=== PATIENT | male | born 1975 | race Caucasian/White ===

== ENCOUNTER 2023-12-30 18:55 | Emergency (ER) | payer BC, SELFPAY ==
[2023-12-30 18:57] VITALS: BP 139/75; PULSE 66; RESP 18; TEMP 36.8; O2SAT 100; BMI 28.0
--- NOTE | 2023-12-30 19:07 | ECG_ITS ---
APPROVED REPORT Exam: Resting ECG HR:61 bpm ECG Measurements Heart Rate 61 AXES DC 205 P 66 QRSd 103 QRS 55 QT 423 T 46 QTc 426 Conclusion SINUS RHYTHM NORMAL ECG UNCONFIRMED REPORT Electronically signed by : Gurpreet Ivan MD 01/02/2024 20:16:34
[2023-12-30 19:14] VITALS: BMI 28.0
--- NOTE | 2023-12-30 19:19 | ED_ITS ---
Discharge Plan Disposition Chief Complaint: Psychiatric Symptoms Prescriptions Prescriptions: No Action ropinirole 1 mg tablet 1 mg PO DAILY pantoprazole 40 mg tablet,delayed release (DR/EC) 40 mg PO DAILY buspirone 10 mg tablet 10 mg PO DAILY folic acid 1 mg tablet 1 mg PO DAILY hydroxyzine HCl 25 mg tablet 25 mg PO HS Patient Comments: TAKE 1 TABLET BY MOUTH EVERYDAY AT BEDTIME paroxetine HCl 40 mg tablet 1 mg PO DAILY quetiapine 50 mg tablet 1 mg PO DAILY thiamine mononitrate (vit B1) 100 mg tablet 100 mg PO DAILY naloxone 4 mg/actuation spray,non-aerosol 4 mg INTRANASAL DAILY Referrals Follow up/Referrals: Provider,Referral, MD [Primary Care Provider] - See instructions Clinical Impressions Clinical Impression: Depression with suicidal ideation Discharge ED Provider: Paolo Gillespie General Adult HPI General Chief complaint: Psychiatric Symptoms Stated complaint: suicidal thoughts Time Seen by Provider: 12/30/23 18:59 Mode of Arrival: Ambulatory Source of Information: Patient Limitations: No Limitations Description of Symptoms (Recalled from ER Triage Doc. by RN): Patient came in for SI. Patient states that he has been using 'meth, alcohol, wees vaps, pot, and gabapentin.' Patient states that he has been feeling worthless and will either hang himself, blow his brains out, or OD. History of Present Illness HPI narrative: 48-year-old male history of polysubstance abuse including methamphetamines, marijuana, alcohol, heroin, among others orally, nasally, intravenously presenting with suicidal ideation. Patient states that he has been feeling w orthless and as if he needs to . He has had thoughts of hurting himself via overdose. He states that [facility] in order to get back on his feet, off drugs and be clean entirely. States when he uses drugs, he has hallucinations, he is not currently having them. Last used intranasal drugs more than 24 hours prior to this visit. Denies any current symptoms other than right knee pain. Related Data Home Medications Medication Instructions Recorded Confirmed buspirone 10 mg tablet 10 mg PO DAILY 12/30/23 12/30/23 folic acid 1 mg tablet 1 mg PO DAILY 12/30/23 12/30/23 hydroxyzine HCl 25 mg tablet 25 mg PO HS 12/30/23 12/30/23 naloxone 4 mg/actuation nasal spray 4 mg intranasal DAILY 12/30/23 12/30/23 pantoprazole 40 mg tablet,delayed 40 mg PO DAILY 12/30/23 12/30/23 release paroxetine HCl 40 mg tablet 1 mg PO DAILY 12/30/23 12/30/23 quetiapine 50 mg tablet 1 mg PO DAILY 12/30/23 12/30/23 ropinirole 1 mg tablet 1 mg PO DAILY 12/30/23 12/30/23 thiamine mononitrate (vit B1) 100 100 mg PO DAILY 12/30/23 12/30/23 mg tablet Allergies Allergy/AdvReac Type Severity Reaction Status Date / Time No Known Allergies Allergy Verified 12/30/23 19:14 [facility] Disclaimer: The information contained in this section may have been updated after the ivette aguillon was seen, as this information can be updated by other users. Social History Smoking Status: Current every day smoker alcohol intake: current current occupational status: unemployed Travel in the last 8 weeks: None ROS Obtained: Yes All systems reviewed & no additional complaints except as documented Physical Exam General General appearance: alert and in no apparent distress Head Head exam: atraumatic and normocephalic Eye Eye exam: Present normal appearance, PERRL and EOMI ENT ENT exam: Present mucous membranes moist Neck Neck exam: Present normal inspection, full ROM and trachea midline Respiratory Respiratory exam: Absent respiratory distress, wheezes, stridor, accessory muscle use or prolonged expiratory phase Cardiovascular Cardiovascular exam: Present normal rhythm Abdominal Exam Abdominal exam: Present soft; Absent distention, tenderness, guarding, rebound or rigidity Extremities Exam Extremities exam: Absent edema Neurological Exam Neurological exam: Present alert, oriented X3, CN II-XII intact and normal gait; Absent motor sensory deficit Skin Skin exam: Present warm and dry; Absent diaphoresis or erythema Medical Decision Making Medical Records Medical records reviewed: Yes I reviewed the patient's medical records. Jorje Inquiry Pt receiving controlled substance: No Jorje was queried for this patient: No Vital Signs: 12/30/23 18:57 Temperature 98.3 F Temperature Source Oral Pulse Rate [Radial] 66 Respiratory Rate 18 Blood Pressure [Right Arm] 139/75 Blood Pressure Mean [Right Arm] 96 Blood Pressure Source [Right Arm] Automatic Cuff Blood Pressure Position [Right Arm] Sitting 02 Sat by Pulse Oximetry 100 Oxygen Delivery Method Room Air Lab Data Lab Results 12/30/23 19:15: WBC 4.9, RBC 4.48 L, Hgb 13.3 L, Hct 39.9 L, MCV 89.0, MCH 29.6, MCHC 33.3, RDW 14.8, Plt Count 200, MPV 7.6, Neut % (Auto) 54.5, Lymph % (Auto) 31.2, [place] % (Auto) 9.3, Eos % (Auto) 4.4, Baso % (Auto) 0.6, Neut # (Auto) 2.7, Lymph # (Auto) 1.5, [place] # (Auto) 0.5, Eos # (Auto) 0.2, Baso # (Auto) 0.0, Sodium 141, Potassium 4.3, Chloride 110 H, Carbon Dioxide 32 H, Anion Gap 3.3 L, BUN 14, Creatinine 0.90, Estimated Creat Clear 124, Estimated GFR 90, Est GFR ( Amer) 109, Glucose 102 H, Calcium 8.7, Total Bilirubin 0.5, AST 30, ALT 19, Alkaline Phosphatase 53, Total Protein 7.1, Albumin 4.0, Globulin 3.1, Albumin/Globulin Ratio 1.3, Salicylates < 1.0 L, Acetaminophen < 10 L, Plasma/Serum Alcohol < 10, SARS-CoV-2 (PCR) Not detected, Influenza A Untype (PCR) Not detected, Influenza Type B (PCR) Not detected 12/30/23 19:50: Urine Color Yellow, Urine Appearance Clear, Urine pH 6.0, Ur Specific [place] >= 1.030, Urine Protein Negative, Urine Glucose (UA) Negative, Urine Ketones Negative, Urine Blood Negative, Urine Nitrate Negative, Urine Bilirubin Negative, Urine Urobilinogen 0.2, Ur Leukocyte Esterase Negative, Urine RBC Occasional, Urine WBC None, Ur Squamous Epith Cells Occasional, Urine Bacteria None, Urine Opiates Screen Negative, Urine Methadone Screen Negative, Ur Barbituates Screen Negative, Ur Phencyclidine Scrn Negative, Ur Amphetamines Screen Positive H, U Benzodiazepines Scrn Negative, Urine Cocaine Screen Negative, U Marijuana (THC) Screen Negative 12/30/23 19:15 12/30/23 19:15 Orders (Tests/Meds): ORDERS Category Date Time Status Knee XR right 3 views [XR knee RT 3V] Stat Exams 12/30/23 19:21 Completed Acetaminophen Stat Lab 12/30/23 19:15 Completed CBC w/Auto Diff [Complete Blood Count Auto Diff] Stat Lab 12/30/23 19:15 Completed CMP [Comprehensive Metabolic Panel] Stat Lab 12/30/23 19:15 Completed Ethanol [Ethyl Alcohol] Stat Lab 12/30/23 19:15 Completed Rapid PCR Covid and Flu A/B Stat Lab 12/30/23 19:15 Completed Salicylate Stat Lab 12/30/23 19:15 Completed UA [Urinalysis and Microscopic] Stat Lab 12/30/23 19:50 Completed UDS [Drug Screen,Urine] Stat Lab 12/30/23 19:50 Completed Medical Decision Narrative: 48-year-old male history of polysubstance abuse including methamphetamines, marijuana, alcohol, heroin, among others orally, nasally, intravenously presenting with suicidal ideation. Patient states that he has been feeling worthless and as if he needs to . He has had thoughts of hurting himself via overdose. He states that he wants to go to [facility] in order to get back on his feet, off drugs and be clean entirely. States when he uses drugs, he has hallucinations, he is not currently having them. Last used intranasal drugs more than 24 hours prior to this visit. Denies any current symptoms other than right knee pain. History was obtained via conversation with patient. On arrival, patient hemodynamically stable, alert, oriented x4, appropriate, GCS 15, moving all extremities spontaneously, pupils equal and reactive to light. Full physical exam performed and significant for poor dentition, but overall well-appearing male. Nontachycardic, normotensive. Not responding to internal stimuli, answering questions appropriately. Unremarkable right knee exam, str ucturally intact, range of motion full, patient ambulating without issue. Differential includes polysubstance abuse, intoxication, withdrawal, suicidal ideation, homicidal ideation, acute psychosis, among others. Patient was given meal tray for symptomatic management and correction of underlying abnormalities. Workup independently interpreted and significant for nonactionable CBC or chemistry. Salicylates, ethanol, acetaminophen levels negative. Urine drug screen positive for amphetamines. See radiology read for full review of final results. Independent interpretation of EKG shows sinus rhythm 61 beats a minute. First-degree AV block QRS and QT intervals within normal limits. No ST or T wave changes concerning for acute ischemia. [place] normal. Right knee x- rays without any acute abnormality. On reevaluation, patient resting company bed tolerating p.o. intake without issue and without any acute complaints. [facility] was petitioned. Given patient presentation, workup, history, this most likely represents suicidal ideation in the setting of chronic depression. Because patient high risk for clinical decompensation if discharged, deemed appropriate for transfer and i npatient admission. Results were relayed to patient who voiced understanding and patient was agreeable to transfer, inpatient admission, and management. Patient was graciously accepted and transferred to [place] for further definitive management. Critical Care Critical Care Time Critical Care Time: No
--- NOTE | 2023-12-30 19:21 | XR_ITS ---
PROCEDURE INFORMATION: Exam: XR Right Knee Exam date and time: 12/30/2023 7:20 PM Age: 48 years old Clinical indication: Pain; Knee; Right; Additional info: R knee pain and popping TECHNIQUE: Imaging protocol: Radiologic exam of the right knee. Views: 3 views. COMPARISON: No relevant prior studies available. FINDINGS: Bones/joints: Mild tricompartmental degenerative changes. No acute fracture identified. Soft tissues: Normal. IMPRESSION: No acute abnormality.
[2023-12-30 19:34] LABS: Coronavirus 19, PCR Not Detected (NotDetected); Influenza A, PCR Not Detected (NotDetected); Influenza B, PCR Not Detected (NotDetected)
[2023-12-30 19:53] LABS: Chloride 110 mmol/L (98-107); Potassium 4.3 mmoL/L (3.5-5.1); Sodium 141 mmol/L (136-145)
[2023-12-30 19:56] LABS: Alanine Aminotransferase 19 U/L (12-78); Albumin/Globulin Ratio 1.3 (1.1-1.8); Alkaline Phosphatase 53 U/L (38-126); Anion Gap 3.3 mEq/L (5-15); Aspartate Amino Transferase 30 U/L (17-59); Bilirubin,Total 0.5 mg/dl (0.2-1.3); Blood Urea Nitrogen 14 mg/dl (9-20); Calcium 8.7 mg/dl (8.4-10.2); Carbon Dioxide 32 mmol/L (22.0-30.0); Creatinine Clearance Estimated 124 mL/min (50-200); Estimated Glomerular Filt Rate 90 ml/min (>60); GFR (African American) 109 ML/MIN (>60); Globulin 3.1 g/dL (1.3-3.2); Glucose 102 mg/dl (74-100); Total Protein,Serum 7.1 g/dl (6.3-8.2)
[2023-12-30 20:00] LABS: Basophils % 0.6 % (0.1-2.0); Eosinophils # 0.2 K/mm3 (0.0-0.4); Eosinophils % 4.4 % (0.1-12.0); Hematocrit 39.9 % (42.0-52.0); Hemoglobin 13.3 g/dL (14.1-18.0); Lymphocytes # 1.5 K/mm3 (0.7-4.5); Lymphocytes % 31.2 % (10-50); Mean Corpuscular HGB Conc 33.3 g/dL (31.8-35.4); Mean Corpuscular Hemoglobin 29.6 pg (27.0-31.2); Mean Platelet Volume 7.6 fl (7.4-10.4); Monocytes # 0.5 K/mm3 (0.1-1.0); Monocytes % 9.3 % (1.7-9.3); Neutrophils # 2.7 K/mm3 (1.8-7.8); Neutrophils % 54.5 % (37.0-80.0); Platelet Count 200 K/mm3 (142-424); Red Blood Count 4.48 M/mm3 (4.60-6.20); Red Cell Distribution Width 14.8 % (11.5-17.5); White Blood Count 4.9 K/mm3 (4.8-10.8)
[2023-12-30 20:04] LABS: Acetaminophen < 10 ug/ml (10-30); Salicylate < 1.0 mg/dL (2.0-20.0)
[2023-12-30 20:05] LABS: Barbiturates Screen,Urine Negative ng/ml (<200)
[2023-12-30 20:06] LABS: Benzodiazepines Screen,Urine Negative ng/ml (<200)
--- NOTE | 2023-12-30 20:06 | PC.NURSE ---
patients mother called. patient gave permission to RN to give her an update on him.
[2023-12-30 20:07] LABS: Cannabinoid Screen,Urine Negative ng/ml (<50)
[2023-12-30 20:07] LABS: Ethyl Alcohol < 10 mg/dl (0-10)
[2023-12-30 20:08] LABS: Cocaine Screen,Urine Negative ng/ml (<300)
[2023-12-30 20:09] LABS: Opiate Screen,Urine Negative ng/ml (<300); Phencyclidine Screen,Urine Negative ng/ml (<25)
[2023-12-30 20:15] LABS: Methadone Screen,Urine Negative ng/ml (<300)
--- NOTE | 2023-12-30 20:24 | PC.NURSE ---
called and spoke with [facility] and fax over pt information for review
[2023-12-30 20:28] LABS: Appearance,Urine CLEAR (Clear); Bilirubin,Urine Negative (Negative); Blood, Urine Negative (Negative); Color,Urine YELLOW (Yellow); Glucose,Urine (UA) Negative (Negative); Ketones,Urine Negative (Negative); Leukocyte Esterase,Urine Negative (Negative); Microscopic, Urine URINE MICROSCOPIC (MICROSCOPIC); Nitrate,Urine Negative (Negative); Protein,Urine Negative (Negative); Specific Gravity, Urine >= 1.030 (1.005-1.030); Urobilinogen,Urine 0.2 EU/dl (0.2)
[2023-12-30 20:32] LABS: Amphetamine/Metha Screen,Urine Positive ng/ml (<1000)
[2023-12-30 20:45] LABS: RBC,Urine Occasional #/hpf (0-3); Squamous Epithelial Cell,Urine Occasional #/hpf (0-5)
--- NOTE | 2023-12-30 20:50 | PC.NURSE ---
Rounded on patient, RN at bedside. provided patient with warm blanket at this time.
--- NOTE | 2023-12-30 21:05 | PC.NURSE ---
Psychiatric evaluation in progress via zoom at this time.
--- NOTE | 2023-12-30 21:53 | PC.NURSE ---
pt has been accepted to [facility] by Dr Smiley
--- NOTE | 2023-12-30 22:06 | PC.NURSE ---
notified [facility] that pt is ready for transport to [facility]
[2023-12-30 22:14] VITALS: BP 113/68; PULSE 69; RESP 18; TEMP 36.8; O2SAT 96
== END 2023-12-30 22:24 ==
PROVIDERS: Emergency Provider Emergency Medicine
DX: R45.851 Suicidal ideations (principal); F33.9 Major depressive disorder, recurrent, unspecified; M25.561 Pain in right knee; F17.210 Nicotine dependence, cigarettes, uncomplicated
CPT/HCPCS: 73562; 80053; 80307; 80329; 81001; 85025; 87636; 93005; 99285